=== PATIENT | female | born 1950 | race Caucasian/White ===

== ENCOUNTER 2021-06-11 21:48 | Inpatient (IN) ==
[2021-06-11] MEDS ORDERED: ALBUTEROL/IPRATROPIUM 3 ML NEB RESP TX STA (22:07)
[2021-06-11] MEDS ORDERED: methylPREDNISolone SOD SUC 125 MG/2 ML VIAL IV STA (22:15)
[2021-06-11 22:20] LABS: Basophils % 0.2 % (0.0-0.8); Eosinophils % 0.3 % (0.00-10.9); Hematocrit 32.6 VOL% (35.7-47.0); Hemoglobin 10.3 GM/DL (12.0-16.0); Immature Granulocytes % 0.6 %; Immature Granulocytes Absolute 0.07 #; Lymphocytes % 17.3 % (21.3-54.2); Mean Corpuscular HGB Conc 31.6 GM/DL (32-36); Mean Corpuscular Volume 90.1 FL (87-102); Mean Platelet Volume 11.8 FL (9.6-12.0); Monocytes % 3.4 % (1.7-12.7); Neutrophils % 78.2 % (38.7-73.9); Platelet Count 232 T/CUMM (130-400); Red Blood Count 3.62 MC/CUMM (3.8-5.5); White Blood Count 11.4 T/CUMM (4-12)
[2021-06-11 22:40] LABS: INR 0.9; PT Patient Result 10.6 SECS (10.5-12.0); Partial Thromboplastin Time 25.9 SECS (23.9-33.8)
[2021-06-11 22:46] LABS: Alanine Aminotransferase 20 U/L (13-56); Albumin 3.4 G/DL (3.4-5.0); Alkaline Phosphatase 85 U/L (45-117); Aspartate Amino Transferase 29 U/L (0-37); Bilirubin,Total < 0.39 MG/DL (0.20-1.00); Blood Urea Nitrogen 22 MG/DL (7-18); Calcium 8.3 MG/DL (8.5-10.1); Carbon Dioxide 21 MMOL/L (21-32); Estimated Glom Filtration Rate 25 ML/MIN; Glucose 159 MG/DL (74-106); Osmolality,Calculated 284.4 MOS/KG (273-304); Potassium 5.3 MMOL/L (3.5-5.1); Sodium 140 MMOL/L (136-145); Total Protein 6.6 G/DL (6.4-8.2)
[2021-06-11] MEDS ORDERED: cefTRIAXone 1,000 MG in SODIUM CHLORIDE 0.9% 100 ML IV STA (23:17)
[2021-06-11] MEDS ORDERED: DEXAMETHASONE 4 MG/1 ML VIAL IV STA (23:17)
[2021-06-11 23:29] LABS: ABG Base Excess -1.5 MMOL/L (-2.5-2.5); ABG HCO3 22.9 MMOL/L (20-26); ABG Oxygen Saturation 82.4 % (95-100); ABG PCO2 39.5 MM HG (35-48); ABG PH 7.381 (7.35-7.45); ABG PO2 50.8 MM HG (80-95); ABG TCO2 21.4 MMOL/L (23-27)
[2021-06-11 23:40] LABS: Ferritin 488.7 ng/mL (8-252)
[2021-06-12] MEDS ORDERED: ONDANSETRON 4 MG/2 ML VIAL IV PRN (00:04)
[2021-06-12] MEDS ORDERED: diphenhydrAMINE CAP 25 MG CAPSULE PO PRN (00:04)
[2021-06-12] MEDS ORDERED: ACETAMINOPHEN 325 MG TABLET PO PRN (00:04)
[2021-06-12] MEDS ORDERED: DOCUSATE SODIUM 100 MG CAPSULE PO PRN (00:04)
[2021-06-12] MEDS ORDERED: DEXTROSE 50% 25 GM/50 ML VIAL IV PRN (00:04)
[2021-06-12] MEDS ORDERED: GLUCAGON 1 MG VIAL IM PRN (00:04)
[2021-06-12] MEDS ORDERED: SODIUM CHLORIDE 0.9% 1,000 ML IV STA (00:04)
[2021-06-12] MEDS ORDERED: guaiFENesin/DM ER 600-30 MG TABLET PO PRN (00:04)
[2021-06-12] MEDS ORDERED: ZALEPLON 5 MG CAPSULE PO PRN (00:04)
[2021-06-12] MEDS ORDERED: hydrALAZINE 20 MG/1 ML VIAL IV PRN (00:04)
[2021-06-12] MEDS ORDERED: NICOTINE 21 MG/24 HR PATCH TRANSDERM PRN (00:04)
[2021-06-12] MEDS ORDERED: SODIUM CHLORIDE 0.9% 1,000 ML IV SCH (00:30)
[2021-06-12] MEDS ORDERED: ALBUTEROL/IPRATROPIUM 3 ML NEB RESP TX SCH (01:00)
[2021-06-12] MEDS ORDERED: ALBUTEROL INHALER 18 GM INH PRN (02:04)
[2021-06-12] MEDS: AZITHROMYCIN INJ 500 MG in SODIUM CHLORIDE 0.9% 250 ML IV SCH (03:20)
[2021-06-12 05:46] LABS: Hematocrit 29.8 VOL% (35.7-47.0); Hemoglobin 9.3 GM/DL (12.0-16.0); Immature Granulocytes % 0.3 %; Immature Granulocytes Absolute 0.02 #; Lymphocytes # 0.7 10*3/uL (1.4-4.0); Lymphocytes % 10.2 % (21.3-54.2); Mean Corpuscular HGB Conc 31.2 GM/DL (32-36); Mean Corpuscular Volume 90.3 FL (87-102); Mean Platelet Volume 11.8 FL (9.6-12.0); Monocytes % 1.4 % (1.7-12.7); Neutrophils % 88.1 % (38.7-73.9); Platelet Count 186 T/CUMM (130-400); Red Cell Distribution Width 13.9 % (9.3-17.3); White Blood Count 6.5 T/CUMM (4-12)
[2021-06-12 06:09] LABS: Hypochromasia 1+; Microcytosis 1+; Platelet Estimate Adequate
[2021-06-12 06:36] LABS: Alanine Aminotransferase 20 U/L (13-56); Albumin 3.2 G/DL (3.4-5.0); Alkaline Phosphatase 75 U/L (45-117); Aspartate Amino Transferase 49 U/L (0-37); Bilirubin,Total < 0.39 MG/DL (0.20-1.00); Blood Urea Nitrogen 25 MG/DL (7-18); Calcium 8.4 MG/DL (8.5-10.1); Carbon Dioxide 20 MMOL/L (21-32); Estimated Glom Filtration Rate 25 ML/MIN; Glucose 118 MG/DL (74-106); Osmolality,Calculated 285.3 MOS/KG (273-304); Potassium 5.5 MMOL/L (3.5-5.1); Sodium 141 MMOL/L (136-145); Total Protein 6.7 G/DL (6.4-8.2)
[2021-06-12] MEDS ORDERED: PANTOPRAZOLE 40 MG TABLET PO SCH (09:00)
[2021-06-12] MEDS: ZINC GLUCONATE 50 MG TABLET PO SCH (09:16)
[2021-06-12] MEDS: CHOLECALCIFEROL 1,000 UNIT TABLET PO SCH (09:16)
[2021-06-12] MEDS: DEXAMETHASONE 4 MG/1 ML VIAL IV SCH (09:16)
[2021-06-12] MEDS: FAMOTIDINE 20 MG TABLET PO SCH ×2 (10:22→21:15)
[2021-06-12] MEDS: ASCORBIC ACID 500 MG TABLET PO SCH ×2 (10:23→21:14)
[2021-06-12] MEDS: CLORAZEPATE 3.75 MG TABLET PO SCH ×2 (14:22→21:15)
[2021-06-12] MEDS ORDERED: cefTRIAXone 1,000 MG in SODIUM CHLORIDE 0.9% 100 ML IV SCH (21:00)
[2021-06-13 04:33] VITALS: BP 103/68
[2021-06-13] MEDS ORDERED: SODIUM CHLORIDE 0.9% 500 ML IV ONE (07:14)
[2021-06-13] MEDS ORDERED: MIDAZOLAM 2 MG/2 ML VIAL IV ONE (07:30)
[2021-06-13] MEDS ORDERED: MIDAZOLAM 2 MG/2 ML VIAL ONE (07:31)
[2021-06-13] MEDS ORDERED: MIDAZOLAM 100 MG in SODIUM CHLORIDE 0.9% 80 ML IV PRN (07:34)
[2021-06-13] MEDS ORDERED: EPINEPHrine 1 MG/ML VIAL ONE (07:46)
[2021-06-13] MEDS ORDERED: SODIUM BICARBONATE 50 MEQ/50 ML VIAL IV ONE (07:46)
[2021-06-13] MEDS: ASCORBIC ACID 500 MG TABLET PO SCH (08:23)
[2021-06-13] MEDS: CLORAZEPATE 3.75 MG TABLET PO SCH (08:23)
[2021-06-13] MEDS: ZINC GLUCONATE 50 MG TABLET PO SCH (08:23)
[2021-06-13] MEDS: CHOLECALCIFEROL 1,000 UNIT TABLET PO SCH (08:23)
[2021-06-13] MEDS: DEXAMETHASONE 4 MG/1 ML VIAL IV SCH (08:24)
[2021-06-13] MEDS: AZITHROMYCIN INJ 500 MG in SODIUM CHLORIDE 0.9% 250 ML IV SCH (08:29)
[2021-06-13] MEDS ORDERED: NOREPINEPHRINE 8 MG in SODIUM CHLORIDE 0.9% 242 ML IV PRN (08:35)
[2021-06-13] MEDS ORDERED: NOREPINEPHRINE 4 MG/4 ML VIAL IV ONE (08:37)
[2021-06-13] MEDS ORDERED: ENOXAPARIN 40 MG/0.4 ML SYRINGE SUBCUT SCH (09:00)
[2021-06-13] MEDS ORDERED: FAMOTIDINE 20 MG/2 ML VIAL IV SCH (09:00)
[2021-06-13 09:08] LABS: ABG Base Excess -15.1 MMOL/L (-2.5-2.5); ABG HCO3 13.1 MMOL/L (20-26); ABG Oxygen Saturation 93.7 % (95-100); ABG PCO2 39.8 MM HG (35-48); ABG PO2 86.7 MM HG (80-95); ABG TCO2 14.3 MMOL/L (23-27); Pt O2 Delivery Device Ventilator
[2021-06-13 09:11] LABS: ABG PH 7.135 (7.35-7.45)
[2021-06-13 09:12] LABS: Bilirubin,Urine Negative (Negative); Blood, Urine Negative (Negative); Glucose,Urine (UA) Negative (Negative); Ketones,Urine Negative (Negative); Mucus,Urine Occasional /LPF (Occasional); Nitrite,Urine Negative (Negative); Protein,Urine >=500 MG/DL; RBC,Urine 33 /HPF (0-4); Squamous Epithelial Cell,Urine Occasional /HPF (0-10); Urine Appearance CLEAR (Clear); Urine Color Yellow (Yellow); Urine Specific Gravity 1.013 (1.001-1.035); Urine Urobilinogen < 2.0 EU/DL (0.2-1.0)
[2021-06-13] MEDS ORDERED: NOREPINEPHRINE 16 MG in SODIUM CHLORIDE 0.9% 234 ML IV PRN (09:16)
[2021-06-13] MEDS ORDERED: PHENYLEPHRINE DRIP 40 MG/250 ML PREMIX IV ONE (09:17)
[2021-06-13] MEDS ORDERED: PHENYLEPHRINE DRIP 40 MG/250 ML PREMIX IV PRN (09:18)
[2021-06-13] MEDS ORDERED: methylPREDNISolone SOD SUC 40 MG/1 ML VIAL IV SCH (10:00)
[2021-06-13] MEDS ORDERED: SODIUM CHLORIDE 23.4% CONC INJ 38.5 MEQ, SODIUM BICARB INJ 100 MEQ in STERILE WATER INJ... IV SCH (10:30)
[2021-06-13 10:53] LABS: ABG Base Excess -15.9 MMOL/L (-2.5-2.5); ABG HCO3 12.1 MMOL/L (20-26); ABG Oxygen Saturation 85.5 % (95-100); ABG PCO2 39.8 MM HG (35-48); ABG PO2 66.6 MM HG (80-95); ABG TCO2 12.4 MMOL/L (23-27)
[2021-06-13 10:55] LABS: ABG PH 7.115 (7.35-7.45)
[2021-06-13] MEDS ORDERED: MORPHINE 2 MG/1 ML SYRINGE IV PRN (11:41)
[2021-06-13] MEDS ORDERED: CALCIUM CHLORIDE 1,000 MG/10 ML SYRINGE IV ONE (11:43)
[2021-06-13] MEDS ORDERED: EPINEPHrine 1 MG/10 ML SYRINGE IV ONE (11:43)
[2021-06-13] MEDS ORDERED: SODIUM BICARBONATE 50 MEQ/50 ML SYRINGE IV ONE (11:43)
== END 2021-06-13 11:44 | disposition expired | DRG 208 ==
LOC: N.ED 21:48 → N.EDINP 06-12 00:04 → SUATTDRO 06-12 00:04 → N.2E 06-12 00:21 → N.CC 06-13 07:25
PROVIDERS: ADMIT Internal Medicine; ATTEND Internal Medicine